=== PATIENT | male | born 1945 | race Caucasian/White ===

== ENCOUNTER → 2018-04-09 | Outpatient (CLI) | payer MEDICARE, BC ==
[~2018-04-09] MED LIST: ACTOS30 MG PO; ASPIRIN 81M81 MG/TA2 PO; ATIVAN 0.50.5 MG/TAB PO; DIOVAN 80MG80 MG PO; GLUCOPHAGE500 MG/TAB PO; MELATONIN1 MG PO; MESTINON 6060 MG/TAB PO; PREDNISONE20 MG PO; SYNTHROID0.05 MG/TA PO
== END ==
LOC: COL.RAD 09:20
DX: R13.14 Dysphagia, pharyngoesophageal phase (principal); Z86.39 Personal history of other endocrine, nutritional and metabolic disease

== ENCOUNTER 2018-04-30 11:15 | Outpatient (RCR) | payer MEDICARE, BC | END 2018-06-12 | disposition home or self-care (01) | LOC: WSST | DX: K21.9 Gastro-esophageal reflux disease without esophagitis (principal); R13.10 Dysphagia, unspecified; R05 Cough | CPT/HCPCS: G8996-GN; G8997-GN ==